=== PATIENT | female | born 1980 | race Caucasian/White ===

== ENCOUNTER → 2019-07-07 | Outpatient (CLI) | payer BC, SELFPAY ==
[2017-10-03 15:30] VITALS: BMI 24.7
== END | disposition home or self-care (01) ==
LOC: BFHLAB 14:02
PROVIDERS: PCP Family Medicine; Visit Provider Family Medicine
DX: N30.00 Acute cystitis without hematuria (principal)
CPT/HCPCS: 87086

== ENCOUNTER 2019-07-09 16:11 | Emergency (ER) | payer BC, SELFPAY ==
[2019-07-09 16:12] VITALS: BP 137/103; PULSE 73; RESP 20; TEMP 36.4; O2SAT 97; BMI 29.7
[2019-07-09 16:31] VITALS: TEMP 36.4
--- NOTE | 2019-07-09 16:31 | ED.DCSUM_ITS ---
- ER Visit Summary Date of Service: 07/09/19 Chief Complaint: Dysuria History of Present Illness: The patient is a 38 F no significant past medical or surgical history. On Saturday she started 7 symptoms of dysuria urgency and frequency. Seen by her primary care physician thought to have a UTI. Initially started on a cephalosporin and within 24 hours she was having no relief they changed to ciprofloxacin and again no relief. According to her primary care physician reviewed her urine culture and it was negative. Even though the initial UA dip seemed to be positive. Since she is not getting better they sent her in for further evaluation. She denies any vaginal discharge but is actively on her menstrual period at this time. She denies any fever chills or similar symptoms in the past. Physical Examination: Middle-aged female no acute distress vital signs are stable afebrile. H EENT exam unremarkable neck nontender. Lungs clear to auscultation bilaterally. Heart regular rhythm no murmur. Abdomen soft nontender normal bowel sounds no peritoneal signs. Extremities moves all 4. Nontender, no edema no cords. Back nontender. Neurologically she is awake and alert. No exam done female nurse present in the room. External exam unremarkable. No lesions. No discharge or blood. Pelvic exam just to the left at her urethra about 3:00 there is mild redness and irritation of the skin. There is no herpetic lesions. There is no condyloma that I can see at this time. The very small area. There is no blood or discharge. On speculum exam there is no abnormality. The cervix appears normal again with no blood or discharge. Test Results: Urinalysis no acute abnormality. No infection. Urine negative. Emergency Department Course and Treatment: Female with dysuria but reportedly a negative urine culture. Treatment Plan: CLINICAL TRIAL DATA MANAGER if not improving. Disposition: Discharge Impression: Acute dysuria secondary to urethral irritation This note was generated with NetMovie dictation software. It may contain incorrect words, spelling, and punctuation that were not noted in review of the chart prior to signing ED Disposition - Plan for ED Patient: Referrals: Guillaume Jauregui DO [Primary Care Provider] -
[2019-07-09 16:55] LABS: Bacteria 0 SEEN /hpf (None Seen); Mucous, Urine 0 SEEN /hpf (<or=2+); White Blood Cells 0 SEEN /hpf (0-5)
[2019-07-09 16:58] LABS: Color, Urine Amber (Yellow); Glucose, Dipstick Normal (Normal); Ketone-Dipstick Negative (Negative); Leukocyte Esterase-Dipstick 25 /ul (Negative); Nitrite-Dipstick Positive (Negative); Occult Blood-Urine 150 /ul (Negative); Protein-Dipstick Negative (Negative); Urine Clarity Clear (Clear); Urine Urobilinogen 8 mg/dl (Normal)
[2019-07-09 17:00] LABS: Internal QC Validated? YES +Cl - CLEAR BKGD; Pregnancy, Urine Negative Negative
[2019-07-09 17:05] LABS: Urine Bilirubin Dipstick 3 mg/dL (Negative)
[2019-07-09 17:18] LABS: Red Blood Cells-Urine 5-10 SEEN /hpf (0-5); Squamous Epithelial Cells - UA 0-5 SEEN /hpf (5-10)
--- NOTE | 2019-07-09 18:00 | DCINST.ED_ITS ---
ED Disposition - Plan for ED Patient: Disposition: Home or Assisted Living Instructions: Urethritis in Women Referrals: Senait Geiger MD [STAFF PHYSICIAN] - 3-5 Days if not improving Additional Instructions: This appears to be irritation of the vaginal skin to the left at about 3:00 of the urethra. Currently there is no signs of infection or bleeding. Follow-up with your HIV PREVENTION SPECIALIST if not improving.
[2019-07-09 18:08] VITALS: PULSE 74; RESP 17; TEMP 36.8; O2SAT 95
== END 2019-07-09 18:10 | disposition home or self-care (01) ==
PROVIDERS: Emergency Provider Emergency Medicine; PCP Family Medicine
DX: R30.0 Dysuria (principal); L53.9 Erythematous condition, unspecified
CPT/HCPCS: 81001; 81025; 99282

== ENCOUNTER 2019-07-10 04:18 | Emergency (ER) | payer BC, SELFPAY ==
[2019-07-09 16:12] VITALS: BMI 29.7
[2019-07-10 04:19] VITALS: BP 124/83; PULSE 70; RESP 16; TEMP 36.6; O2SAT 98; BMI 29.5
--- NOTE | 2019-07-10 04:21 | CT_ITS ---
STUDY: CT ABDOMEN AND PELVIS WITHOUT CONTRAST REASON FOR EXAM: Female, 38 years old. RIGHT FLANK PAIN RADIATION DOSAGE (If Supplied By Facility): CTDIvol = ( 7.88 ) mGy, DLP = ( 387.72 ) mGycm TECHNIQUE: Transaxial images were obtained from the dome of the diaphragm to the symphysis pubis without oral contrast, and without intravenous contrast. Sagittal and coronal images were reconstructed. Individualized dose optimization techniques were used for this CT. COMPARISON: None. FINDINGS: The visualized lung bases are unremarkable. The visualized portions of the heart are within normal limits. Normal liver. Normal gallbladder and extrahepatic biliary system. Normal spleen. Normal pancreas. Normal bilateral adrenal glands. There is moderate right-sided hydronephrosis and hydroureter due to presence of 5 mm stone in the distal end of the right ureter at ureterovesical junction.. Normal left kidney. Normal visualized stomach. Normal small intestine. Normal colon. The appendix is visualized and appears normal. Normal abdominal aorta. Normal inferior vena cava. Normal retroperitoneum. Normal urinary bladder. Normal abdominal wall. Normal osseous structures. CT/Abdomen/Pelvis without Cont IMPRESSION: There is moderate right-sided hydronephrosis and hydroureter due to presence of 5 mm stone in the distal end of the right ureter at ureterovesical junction.. Electronically Signed: Giulia Sarah, at 6:22 EST Tel , Service support ,
--- NOTE | 2019-07-10 04:22 | ED.VIS.GEN ---
History of Present Illness Chief Complaint: Flank Pain Informant: Patient Onset: Today Context: Sudden Onset Timing: Continuous Current Severity: Moderate Maximum Severity: Moderate Narrative: The patient presents to the emergency department with rather sudden onset right-sided flank pain. She was seen here yesterday for dysuria. She had already been on Cipro. Her urine was positive for nitrates and blood. She states she did not have significant pain at that time. Her pain acutely worsened about 3 this morning. She was nauseated with one episode of vomiting. She states she is never had pain like this before. She is otherwise been in her normal state of health. She denies any other new medications. She is not had fever chills. Prior similar symptoms: Yes Recent Illness/Hospitalization: No Past Medical History - Allergies and Home Meds Allergies/Adverse Reactions: Allergies No Known Allergies Allergy (Verified 07/10/19 04:23) Primary Care Physician: Binh Smith MD [STAFF PHYSICIAN] - Prior records reviewed: Yes Past Medical History: None Surgical History: noncontributory Smoking Status: Never smoker Review of Systems General: Denies: Chills, Fever, Sweats Eyes: Denies: Visual changes - bilaterally, Diplopia ENT: Denies: Rhinorrhea, Sore throat Cardiovascular: Denies: Chest pain, Palpitations Respiratory: Denies: Dyspnea, Cough, Dyspnea on exertion Gastrointestinal: Reports: Nausea, Vomiting. Denies: Abdominal pain, Diarrhea, Melena, Hematochezia Genitourinary: Reports: Dysuria. Denies: Hematuria, Frequency Musculoskeletal: Reports: Back pain. Denies: Extremity Pain Skin: Denies: Rash, Wounds Neurological: Denies: Headache, Weakness, Numbness Physical Exam Vital Signs/Narrative: Vital Signs Temp Pulse Resp BP Pulse Ox 07/10/19 04:19 97.8 F 70 16 124/83 H 98 Inital Vital Signs reviewed: Yes General: Well nourished, Well developed, No Acute Distress Head: Normocephalic, Atraumatic Eyes: Perrl, EOMI ENT: Moist mucous membranes, No rhinorrhea Neck: Supple, Nontender Cardiovascular: Regular rate, Regular rhythm, No murmurs Respiratory: No distress, CTA bilaterally, Chest nontender Abdomen: Soft, Nontender, Nondistended, Normal bowel sounds, No masses Back: Normal Inspection, CVA tenderness Extremities: Nontender, No edema Skin: Normal color, No rash Neurological: Alert, Oriented x3, Cranial nerves II-XII grossly intact, Normal Strength, Normal Sensation Psychological: Normal affect, Normal Mood Diagnostic/Tx/Re-eval Abnormal Lab Results 07/10/19 04:40 WBC 5.2 RBC 4.61 Hgb 12.8 Hct 39.9 MCV 86.6 MCH 27.8 MCHC 32.1 RDW Std Deviation 39.5 RDW Coeff of Zaria 12.3 Plt Count 310 MPV 8.7 Immature Gran % (Auto) 0.200 Neut % (Auto) 56.2 Lymph % (Auto) 33.2 [place] % (Auto) 8.3 Eos % (Auto) 1.7 Baso % (Auto) 0.4 Absolute Neuts (auto) 2.9 Absolute Lymphs (auto) 1.71 Nucleated RBC % 0 - Medical Decision Making The patient presents with rather sudden onset right-sided flank pain. She has had dysuria and urinary frequency for the past few days. I did review her culture which was negative. Her urine from yesterday showed some blood. She has signs and symptoms consistent with kidney stone. IV was established. The patient was given analgesics, anti-inflammatories, and antiemetics. She had market improvement of her pain and was resting much more comfortably. Patient underwent CT imaging. This does demonstrate a 5 mm stone that appears to be already in the bladder. The patient is now pain-free. At this point, I do feel that she is safe for outpatient therapy. She will be treated with antiemetics and analgesics. She will be given outpatient urology follow-up as needed. She is comfortable with this plan of care. Impression 1. Right-sided kidney stone ED Disposition - Plan for ED Patient: Instructions: KIDNEY STONE w/ Colic Prescriptions: Hydrocodone Bitart/Apap 5-325 [[place] 5MG-325MG] 1 tab PO Q6H PRN PRN 3 Days #10 tab PRN Reason: Pain Prescription Printed Ondansetron [Zofran Odt] 4 mg PO Q8H PRN PRN #10 tab PRN Reason: Nausea Prescription Printed Referrals: Binh Smith MD [STAFF PHYSICIAN] -
[2019-07-10] MEDS: Ketorolac 30 MG/ML Syringe IV (04:26)
[2019-07-10] MEDS: Morphine 4 MG/ML Syringe IV (04:26)
[2019-07-10] MEDS: Ondansetron 4 MG/2 ML Vial IV (04:26)
[2019-07-10] MEDS: 0.9% Normal Saline 1,000 ML 250 ML IV (04:45)
[2019-07-10 04:49] LABS: Absolute Lymphocyte Count 1.71 X10^3/uL (0.83-4.51); Absolute Neutrophil Count 2.9 X10^3/uL (2.0-7.7); Basophil# 0.02 X10^3/uL; Basophil% 0.4 % (0-1); Eosinophil# 0.09 X10^3/uL; Eosinophils% 1.7 % (0-5); Hematocrit 39.9 % (37-47); Hemoglobin 12.8 g/dL (12.0-15.0); Lymphocyte # 1.71 X10^3/ul (4.0); Lymphocyte % 33.2 % (19-41); Mean Corp Hgb Conc 32.1 g/dL (32-36); Mean Corpuscular Hgb 27.8 pg (27.0-32.0); Mean Corpuscular Volume 86.6 fL (81-99); Mean Platelet Vol. 8.7 fl (6.2-12.0); Monocyte# 0.43 X10^3/uL; Monocyte% 8.3 % (0-10); NRBC Flagged by Analyzer 0 % (0-5); Neutrophil # 2.89 X10^3/uL (2.7-7.7); Neutrophil % 56.2 % (47-70); Platelet Count 310 K/mm3 (150-450); RBC Distribution Width CV 12.3 % (11.6-14.6); RBC Distribution Width SD 39.5 fl (35.1-43.9); Red Blood Count 4.61 M/mm3 (4.2-5.4); White Blood Count 5.2 K/mm3 (4.4-11.0)
[2019-07-10 05:02] LABS: Anion Gap 2 (5-15); BUN 16 mg/dL (7-18); BUN/Creat Ratio 17.8 RATIO (10-20); Calcium,Total 8.1 mg/dL (8.5-10.1); Chloride 112 mmol/L (98-107); EST Glomerular Filtration Rate 74 mL/min (>60); Est Glom Filt Rate - Afr Amer 90 mL/min (>60); Estimated Creatinine Clearance 67.03 ml/min; Glucose 129 mg/dL (74-106); Potassium 3.7 mmol/L (3.5-5.1); Sodium Level 142 mmol/L (136-145)
[2019-07-10 06:29] VITALS: PULSE 80; RESP 14; O2SAT 98
== END 2019-07-10 06:30 | disposition home or self-care (01) ==
PROVIDERS: Emergency Provider Emergency Medicine; PCP Family Medicine
DX: N20.0 Calculus of kidney (principal)
CPT/HCPCS: 74176; 80048; 85025; 96361; 96374; 96375; 99284; J7030; A4216; J2405

== ENCOUNTER 2019-07-10 08:14 | Emergency (ER) | payer BC, SELFPAY ==
[2019-07-10 04:19] VITALS: BMI 29.5
[2019-07-10 08:15] VITALS: BP 91/43; PULSE 73; RESP 20; TEMP 36.4; O2SAT 98; BMI 26.6
--- NOTE | 2019-07-10 08:29 | ED.DCSUM_ITS ---
- ER Visit Summary Date of Service: 07/10/19 Chief Complaint: Right flank pain History of Present Illness: The patient is a 38 F who presents with right flank pain that began this morning. Patient states the pain began suddenly. Patient states the pain woke her up out of her sleep. Patient was seen here earlier this morning and diagnosed with a kidney stone. Patient was feeling better after analgesics here in the emergency department but her pain came back at home. Patient states the pain is localized to the right lower flank area. Patient denies any dysuria or hematuria. Patient denies any urinary frequency. Review of her records shows a 5 mm stone at the right ureterovesicular junction. Physical Examination: Vital signs are stable except for slightly low blood pressure of 91/43. Patient is afebrile. Patient is in no acute distress. Oral mucosa is pink and moist. Neck is supple. Trachea is midline. There is no JVD. Heart was regular rate and rhythm. Lungs are clear and equal bilateral. Abdomen is soft. Bowel sounds are normal. There is some mild right lower abdominal and lower flank tenderness. There is no rebound or guarding noted. Cranial nerves II through XII are intact. There are no focal motor or sensory deficits noted. Test Results: Urinalysis was obtained. There is no evidence of urinary tract infection. Emergency Department Course and Treatment: Patient was given IV fluids, morphine, Zofran, and Toradol. Patient was still having pain. Patient was given repeat doses of Dilaudid. Case was discussed with Dr. Smith. He states the stone is almost into the bladder and the patient should push fluids. He does not want to do surgery for a stone that is almost into the bladder. Patient understands and is agreeable with the plan. Patient was instructed to follow-up in 3 to 5 days. Patient and family understand. All questions were answered. Disposition: Discharge home Impression: Right ureteral calculus This note was generated with [employer] dictation software. It may contain incorrect words, spelling, and punctuation that were not noted in review of the chart prior to signing ED Disposition - Plan for ED Patient: Disposition: Home or Assisted Living Diagnosis: Right ureteral calculus Instructions: KIDNEY STONE w/ Colic Referrals: Guillaume Jauregui DO [Primary Care Provider] - 3-5 Days Binh Smith MD [STAFF PHYSICIAN] - 3-5 Days
[2019-07-10] MEDS: Morphine 4 MG/ML Syringe IV (08:33)
[2019-07-10] MEDS: Ketorolac 30 MG/ML Syringe IV (08:33)
[2019-07-10] MEDS: Ondansetron 4 MG/2 ML Vial IV (08:33)
[2019-07-10] MEDS: 0.9% Normal Saline 1,000 ML 250 ML IV (08:34)
[2019-07-10 08:57] VITALS: BP 117/80
[2019-07-10] MEDS: HYDROmorphone 0.5 MG/0.5 ML SYRINGE IV ×3 (08:59→12:07)
[2019-07-10 09:22] LABS: Basophil# 0.02 X10^3/uL; Basophil% 0.3 % (0-1); Eosinophil# 0.01 X10^3/uL; Eosinophils% 0.1 % (0-5); Hematocrit 36.2 % (37-47); Hemoglobin 11.6 g/dL (12.0-15.0); Lymphocyte % 10.1 % (19-41); Mean Corpuscular Hgb 27.8 pg (27.0-32.0); Mean Corpuscular Volume 86.8 fL (81-99); Mean Platelet Vol. 9.1 fl (6.2-12.0); Monocyte# 0.18 X10^3/uL; Monocyte% 2.6 % (0-10); NRBC Flagged by Analyzer 0 % (0-5); Neutrophil # 5.98 X10^3/uL (2.7-7.7); Neutrophil % 86.6 % (47-70); Platelet Count 275 K/mm3 (150-450); RBC Distribution Width CV 12.5 % (11.6-14.6); RBC Distribution Width SD 39.8 fl (35.1-43.9); Red Blood Count 4.17 M/mm3 (4.2-5.4); White Blood Count 6.9 K/mm3 (4.4-11.0)
[2019-07-10 09:34] LABS: Anion Gap 5 (5-15); BUN 17 mg/dL (7-18); BUN/Creat Ratio 19.5 RATIO (10-20); Calcium,Total 7.9 mg/dL (8.5-10.1); Chloride 116 mmol/L (98-107); Creatinine, Serum 0.87 mg/dL (0.55-1.02); EST Glomerular Filtration Rate 77 mL/min (>60); Est Glom Filt Rate - Afr Amer 93 mL/min (>60); Estimated Creatinine Clearance 75.71 ml/min; Glucose 136 mg/dL (74-106); Sodium Level 145 mmol/L (136-145)
[2019-07-10 10:07] VITALS: BP 132/98
[2019-07-10 10:56] LABS: Mucous, Urine 0 SEEN /hpf (<or=2+)
[2019-07-10 11:04] LABS: Color, Urine Yellow (Yellow); Glucose, Dipstick Normal (Normal); Ketone-Dipstick 5 mg/dl (Negative); Leukocyte Esterase-Dipstick 25 /ul (Negative); Nitrite-Dipstick Positive (Negative); Occult Blood-Urine 150 /ul (Negative); Protein-Dipstick 15 mg/dl (Negative); Specific Gravity, Urine 1.025 (1.002-1.030); Urine Bilirubin Dipstick Negative (Negative); Urine Clarity Clear (Clear); Urine Urobilinogen Normal (Normal)
[2019-07-10 11:10] LABS: Bacteria 1+ /hpf (None Seen); Red Blood Cells-Urine 5-10 SEEN /hpf (0-5); Squamous Epithelial Cells - UA 0-5 SEEN /hpf (5-10); White Blood Cells 0-5 SEEN /hpf (0-5)
[2019-07-10 11:44] VITALS: BP 119/80; PULSE 50; RESP 16; O2SAT 95
[2019-07-10 12:38] VITALS: BP 100/64; PULSE 54; RESP 18; O2SAT 96
== END 2019-07-10 12:39 | disposition home or self-care (01) ==
PROVIDERS: Emergency Provider Emergency Medicine; PCP Family Medicine
DX: N20.1 Calculus of ureter (principal)
CPT/HCPCS: 74176; 80048; 81001; 85025; 96361; 96374; 96375; 96376; 99283; 99284; J7030; A4216; J2405

== ENCOUNTER → 2019-12-14 | Outpatient (CLI) | payer BC, SELFPAY ==
[2019-12-14 12:07] LABS: Absolute Lymphocyte Count 1.94 X10^3/uL (0.83-4.51); Absolute Neutrophil Count 3.1 X10^3/uL (2.0-7.7); Basophil# 0.04 X10^3/uL; Basophil% 0.7 % (0-1); Eosinophil# 0.08 X10^3/uL; Eosinophils% 1.4 % (0-5); Hematocrit 44.2 % (37-47); Hemoglobin 14.2 g/dL (12.0-15.0); Lymphocyte # 1.94 X10^3/ul (4.0); Lymphocyte % 34.9 % (19-41); Mean Corp Hgb Conc 32.1 g/dL (32-36); Mean Corpuscular Hgb 27.7 pg (27.0-32.0); Mean Corpuscular Volume 86.2 fL (81-99); Mean Platelet Vol. 9.9 fl (6.2-12.0); Monocyte% 7.2 % (0-10); NRBC Flagged by Analyzer 0 % (0-5); Neutrophil # 3.08 X10^3/uL (2.7-7.7); Neutrophil % 55.4 % (47-70); Platelet Count 358 K/mm3 (150-450); RBC Distribution Width CV 12.8 % (11.6-14.6); RBC Distribution Width SD 39.6 fl (35.1-43.9); Red Blood Count 5.13 M/mm3 (4.2-5.4); White Blood Count 5.6 K/mm3 (4.4-11.0)
[2019-12-14 12:23] LABS: Hemoglobin A1c 5.4 % (3.8-5.6)
[2019-12-14 12:28] LABS: AST(SGOT) 15 U/L (15-37); Alanine Aminotransfer ALT/SGPT 29 U/L (13-56); Albumin, Serum 3.7 g/dL (3.2-5.0); Alkaline Phosphatase 62 U/L (45-117); Anion Gap 6 (5-15); BUN 17 mg/dL (7-18); BUN/Creat Ratio 18.6 RATIO (10-20); Calcium,Total 8.4 mg/dL (8.5-10.1); Chloride 108 mmol/L (98-107); Cholesterol 172 mg/dL (200); Creatinine, Serum 0.91 mg/dL (0.55-1.02); EST Glomerular Filtration Rate 73 mL/min (>60); Est Glom Filt Rate - Afr Amer 88 mL/min (>60); Ferritin 22 ng/mL (8-252); Globulin 3.7 g/dL (2.2-4.2); Glucose 86 mg/dL (74-106); High Density Lipoprotein 46 mg/dL; Iron 54 ug/dL (50-170); Potassium 4.1 mmol/L (3.5-5.1); Protein, Total 7.4 g/dL (6.4-8.2); Sodium Level 139 mmol/L (136-145); Thyroid Stim Hormone (TSH) 2.58 uIU/mL (0.358-3.74); Triglycerides 62 mg/dL; Very Low Density Lipoprotein 12 mg/dL (5-40)
[2019-12-14 13:00] LABS: HIV - WCH Non-Reactive (Nonreactive); Hepatitis C Antibody Non-Reactive (Nonreactive); Vitamin B12 453 pg/mL (211-911)
== END | disposition home or self-care (01) ==
PROVIDERS: PCP Family Medicine; Visit Provider Family Medicine
DX: Z00.00 Encounter for general adult medical examination without abnormal findings (principal); D64.9 Anemia, unspecified; R73.9 Hyperglycemia, unspecified; R53.83 Other fatigue; Z20.9 Contact with and (suspected) exposure to unspecified communicable disease
CPT/HCPCS: 36415; 80053; 80061; 82607; 82728; 83036; 83540; 84443; 85025; 86703; 86803

== ENCOUNTER 2020-06-28 14:43 | Emergency (ER) | payer BC, SELFPAY ==
[2020-06-28 14:44] VITALS: BP 147/91; PULSE 63; RESP 16; TEMP 36.7; O2SAT 98; BMI 28.3
[2020-06-28] MEDS: Ondansetron ODT 4 MG Tablet PO (15:10)
--- NOTE | 2020-06-28 15:10 | ED.DCSUM_ITS ---
History of Present Illness Chief Complaint: General Illness Informant: Patient Narrative: This is a 39-year-old female who states that on Saturday night she began to have nausea. On Saturday she developed vomiting and diarrhea. No further vomiting or diarrhea but she notes continued nausea. She states that she is having some urinary frequency and now the sides of her abdomen are hurting. She states she is very concerned that her kidneys are involved. She denies any dysuria. No fevers. No cough shortness of breath or sore throat. She denies any rashes. Past Medical History - Allergies and Home Meds Allergies/Adverse Reactions: Allergies No Known Allergies Allergy (Verified 06/28/20 14:43) Primary Care Physician: Guillaume Jauregui DO [Primary Care Provider] - Past Medical History: None Surgical History: noncontributory Smoking Status: Never smoker Drugs: None Review of Systems General: Denies: Chills, Fever, Sweats Eyes: Denies: Visual changes - bilaterally, Diplopia ENT: Denies: Rhinorrhea, Sore throat Cardiovascular: Denies: Chest pain, Palpitations Respiratory: Denies: Dyspnea, Cough, Dyspnea on exertion Gastrointestinal: Reports: Abdominal pain, Nausea, Vomiting, Diarrhea. Denies: Melena, Hematochezia Genitourinary: Denies: Dysuria, Hematuria, Frequency Musculoskeletal: Denies: Back pain, Extremity Pain Skin: Denies: Rash, Wounds Neurological: Denies: Headache, Weakness, Numbness Physical Exam Vital Signs/Narrative: Vital Signs Temp Pulse Resp BP Pulse Ox 06/28/20 14:44 98.1 F 63 16 147/91 H 98 Inital Vital Signs reviewed: Yes General: Well nourished, Well developed, No Acute Distress Head: Normocephalic, Atraumatic Eyes: Perrl, EOMI ENT: Moist mucous membranes, No rhinorrhea Neck: Supple, Nontender Cardiovascular: Regular rate, Regular rhythm, No murmurs Respiratory: No distress, CTA bilaterally, Chest nontender Abdomen: Soft, Nontender, Nondistended, Normal bowel sounds Back: Nontender, Normal Inspection Extremities: Nontender, No edema Skin: Normal color, No rash Neurological: Alert, Oriented x3, Cranial nerves II-XII grossly intact, Normal Strength, Normal Sensation Psychological: Normal affect, Normal Mood Diagnostic/Tx/Re-eval Laboratory Last Values WBC 8.0 K/mm3 (4.4-11.0) 06/28/20 15:15 RBC 5.22 M/mm3 (4.2-5.4) 06/28/20 15:15 Hgb 14.3 g/dL (12.0-15.0) 06/28/20 15:15 Hct 44.5 % (37-47) 06/28/20 15:15 MCV 85.2 fL (81-99) 06/28/20 15:15 MCH 27.4 pg (27.0-32.0) 06/28/20 15:15 MCHC 32.1 g/dL (32-36) 06/28/20 15:15 RDW Std Deviation 38.3 fl (35.1-43.9) 06/28/20 15:15 RDW Coeff of Zaria 12.3 % (11.6-14.6) 06/28/20 15:15 Plt Count 394 K/mm3 (150-450) 06/28/20 15:15 MPV 8.8 fl (6.2-12.0) 06/28/20 15:15 Immature Gran % (Auto) 0.300 % (0.0-0.9) 06/28/20 15:15 Neut % (Auto) 67.2 % (47-70) 06/28/20 15:15 Lymph % (Auto) 23.3 % (19-41) 06/28/20 15:15 [place] % (Auto) 7.8 % (0-10) 06/28/20 15:15 Eos % (Auto) 0.9 % (0-5) 06/28/20 15:15 Baso % (Auto) 0.5 % (0-1) 06/28/20 15:15 Absolute Neuts (auto) 5.4 X10^3/uL (2.0-7.7) 06/28/20 15:15 Absolute Lymphs (auto) 1.85 X10^3/uL (0.83-4.51) 06/28/20 15:15 Nucleated RBC % 0 % (0-5) 06/28/20 15:15 Sodium 139 mmol/L (136-145) 06/28/20 15:15 Potassium 4.0 mmol/L (3.5-5.1) 06/28/20 15:15 Chloride 107 mmol/L (98-107) 06/28/20 15:15 Carbon Dioxide 27.0 mmol/L (21.0-32.0) 06/28/20 15:15 Anion Gap 5 (5-15) 06/28/20 15:15 BUN 14 mg/dL (7-18) 06/28/20 15:15 Creatinine 0.80 mg/dL (0.55-1.02) 06/28/20 15:15 Estim Creat Clear Calc 74.67 ml/min 06/28/20 15:15 Est GFR (MDRD) Af Amer 103 mL/min (>60) 06/28/20 15:15 Est GFR (MDRD) Non-Af 85 mL/min (>60) 06/28/20 15:15 BUN/Creatinine Ratio 17.5 RATIO (10-20) 06/28/20 15:15 Glucose 98 mg/dL (74-106) 06/28/20 15:15 Calcium 8.8 mg/dL (8.5-10.1) 06/28/20 15:15 Total Bilirubin 0.30 mg/dL (0.20-1.00) 06/28/20 15:15 AST 13 U/L (15-37) L 06/28/20 15:15 ALT 27 U/L (13-56) 06/28/20 15:15 Alkaline Phosphatase 64 U/L (45-117) 06/28/20 15:15 Total Protein 7.3 g/dL (6.4-8.2) 06/28/20 15:15 Albumin 4.0 g/dL (3.2-5.0) 06/28/20 15:15 Globulin 3.3 g/dL (2.2-4.2) 06/28/20 15:15 Albumin/Globulin Ratio 1.2 RATIO (0.9-2.4) 06/28/20 15:15 Lipase 182 U/L (73-393) 06/28/20 15:15 Urine Color Yellow (Yellow) 06/28/20 15:10 Urine Clarity Clear (Clear) 06/28/20 15:10 Urine pH 6.5 (5.0 - 8.0) 06/28/20 15:10 Ur Specific [place] 1.010 (1.002-1.030) 06/28/20 15:10 Urine Protein Negative mg/dl (Negative) 06/28/20 15:10 Urine Glucose (UA) Normal mg/dl (Normal) 06/28/20 15:10 Urine Ketones Negative mg/dl (Negative) 06/28/20 15:10 Urine Occult Blood Negative /ul (Negative) 06/28/20 15:10 Urine Nitrite Negative (Negative) 06/28/20 15:10 Urine Bilirubin Negative mg/dL (Negative) 06/28/20 15:10 Urine Urobilinogen Normal mg/dl (Normal) 06/28/20 15:10 Ur Leukocyte Esterase Negative /ul (Negative) 06/28/20 15:10 Urine RBC 0 SEEN /hpf (0-5) 06/28/20 15:10 Urine WBC 0 SEEN /hpf (0-5) 06/28/20 15:10 Ur Squamous Epith Cells 0-5 SEEN /hpf (5-10) 06/28/20 15:10 Urine Bacteria 0 SEEN /hpf (None Seen) 06/28/20 15:10 Urine Mucus 0 SEEN /hpf (<or=2+) 06/28/20 15:10 - Medical Decision Making IV was established and the patient received some IV fluids and Zofran. Basic blood work including urinalysis was obtained. Basic blood work was normal urinalysis was normal. At this point patient be discharged home with Zofran. Return if worsening or concerns ED Disposition - Plan for ED Patient: Disposition: Home or Assisted Living Diagnosis: Gastroenteritis, Nausea Instructions: ED Gastroenteritis, Viral (Adult) Prescriptions: Ondansetron [Zofran Odt] 4 mg PO Q6H PRN PRN #10 tab PRN Reason: Nausea Prescription Printed Referrals: Guillaume Jauregui DO [Primary Care Provider] - As Needed
[2020-06-28 15:24] LABS: Bacteria 0 SEEN /hpf (None Seen); Mucous, Urine 0 SEEN /hpf (<or=2+); Red Blood Cells-Urine 0 SEEN /hpf (0-5); White Blood Cells 0 SEEN /hpf (0-5)
[2020-06-28 15:28] LABS: Absolute Lymphocyte Count 1.85 X10^3/uL (0.83-4.51); Absolute Neutrophil Count 5.4 X10^3/uL (2.0-7.7); Basophil# 0.04 X10^3/uL; Basophil% 0.5 % (0-1); Eosinophil# 0.07 X10^3/uL; Eosinophils% 0.9 % (0-5); Hematocrit 44.5 % (37-47); Hemoglobin 14.3 g/dL (12.0-15.0); Lymphocyte # 1.85 X10^3/ul (4.0); Lymphocyte % 23.3 % (19-41); Mean Corp Hgb Conc 32.1 g/dL (32-36); Mean Corpuscular Hgb 27.4 pg (27.0-32.0); Mean Corpuscular Volume 85.2 fL (81-99); Mean Platelet Vol. 8.8 fl (6.2-12.0); Monocyte# 0.62 X10^3/uL; Monocyte% 7.8 % (0-10); NRBC Flagged by Analyzer 0 % (0-5); Neutrophil # 5.35 X10^3/uL (2.7-7.7); Neutrophil % 67.2 % (47-70); Platelet Count 394 K/mm3 (150-450); RBC Distribution Width CV 12.3 % (11.6-14.6); RBC Distribution Width SD 38.3 fl (35.1-43.9); Red Blood Count 5.22 M/mm3 (4.2-5.4)
[2020-06-28 15:35] LABS: Color, Urine Yellow (Yellow); Glucose, Dipstick Normal (Normal); Ketone-Dipstick Negative (Negative); Leukocyte Esterase-Dipstick Negative /ul (Negative); Nitrite-Dipstick Negative (Negative); Occult Blood-Urine Negative /ul (Negative); Protein-Dipstick Negative (Negative); Urine Bilirubin Dipstick Negative (Negative); Urine Clarity Clear (Clear); Urine Urobilinogen Normal (Normal); Urine pH 6.5 (5.0 - 8.0)
[2020-06-28 15:46] LABS: ALB/GLOB Ratio 1.2 RATIO (0.9-2.4); AST(SGOT) 13 U/L (15-37); Alanine Aminotransfer ALT/SGPT 27 U/L (13-56); Alkaline Phosphatase 64 U/L (45-117); Anion Gap 5 (5-15); BUN 14 mg/dL (7-18); BUN/Creat Ratio 17.5 RATIO (10-20); Calcium,Total 8.8 mg/dL (8.5-10.1); Chloride 107 mmol/L (98-107); EST Glomerular Filtration Rate 85 mL/min (>60); Est Glom Filt Rate - Afr Amer 103 mL/min (>60); Estimated Creatinine Clearance 74.67 ml/min; Globulin 3.3 g/dL (2.2-4.2); Glucose 98 mg/dL (74-106); Lipase 182 U/L (73-393); Protein, Total 7.3 g/dL (6.4-8.2); Sodium Level 139 mmol/L (136-145)
[2020-06-28 15:48] LABS: Squamous Epithelial Cells - UA 0-5 SEEN /hpf (5-10)
== END 2020-06-28 16:35 | disposition home or self-care (01) ==
PROVIDERS: Emergency Provider Emergency Medicine; PCP Family Medicine
DX: K52.9 Noninfective gastroenteritis and colitis, unspecified (principal)
CPT/HCPCS: 80053; 81001; 83690; 85025; 99285; J7030

== ENCOUNTER 2021-03-22 05:56 | Day surgery (SDC) | payer BC, SELFPAY ==
[2021-03-22] VITALS (7 sets, daily range): BP systolic 93–112; BP diastolic 60–90; PULSE 70–92; RESP 16–106; TEMP 36.1–36.9; O2SAT 98–100; BMI 28.0
[2021-03-22 06:58] LABS: Internal QC Validated? YES +Cl - CLEAR BKGD; Pregnancy, Serum, hCG Quali. NEGATIVE Negative
[2021-03-22] MEDS: Lactated Ringers 1,000 ML 100 ML IV (06:59)
--- NOTE | 2021-03-22 07:22 | PCM.HP.BLA ---
History and Physical Date of Admission: 03/22/21 The patientVisit Reasons: CSCOPE, FAMILY HISTORY, BLOOD IN STOOL Chief Complaint: rectal bleeding Rooming House Inspector Required: No Is patient in pain?: No Allergies No Known Allergies Allergy (Verified 02/17/21 15:17) Medications Diltiazem 2% / Lidocaine 5% ointment (compound) #1 ea 02/17/21 [Rx Confirmed 02/17/21] Hydrocortisone 2.5%/lidocaine 5% suppository (cmpd) #1 ea 02/17/21 [Rx Confirmed 02/17/21] semaglutide 1 mg/dose (2 mg/1.5 mL) subcutaneous pen injector 1 mg SUBCUT QWEEK 02/17/21 [History Confirmed 02/17/21] PFSH Medical History Rectal bleed Surgical History History of cosmetic surgery Hx of breast implants, bilateral S/P plastic surgery Family History Uncle Colon cancer Social History Smoking Status: Never smoker alcohol intake: never HPI HPI HPI: WILLAM GALLOWAY, is a 40 F who presents to the office today for with complaint of 8-month history of rectal bleeding. Recently the bleeding has become more frequent and more severe. Sometimes including today she has had clots per rectum. She denies any previous history of colonoscopy. She denies any particular anal pain. She has had change of stool caliber. No history of diverticular disease. She is concerned because she has a great grandmother who had colon cancer and a great uncle with colon cancer and that her mother had premalignant polyps. No fever chills no nausea vomiting no weight loss. No history of COVID-19. No history of DVT. ROS General General: No weight change, appetite, fatigue, colon cancer, breast cancer or weakness HEENT HEENT: No difficulty swallowing, eye injury, eye surgery, swollen glands or hoarseness Endo Endocrine: No thyroid disease, diabetes mellitus, thyroid cancer, Hair loss, heat intolerance or cold intolerance Skin Skin: No rash or changing moles Breast Breast: No left breast lump, right breast lump, nipple discharge, breast pain, abnormal mammogram, abnormal US or breast enlargement Musc Musculoskeletal: No back problems, arthritis, rheumatoid arthritis, gout or joint pain Cardio Cardiovascular: No murmur, pacemaker, heart disease, atrial fibrillation, high blood pressure, heart attack, heart stent, palpitations, shortness of breat with exertion or chest pain Psych Psychiatric: No depression, anxiety or hearing voices Resp Respiratory: No shortness of breath, No sleep apnea, No cough, No COPD, No asthma, No emphysema and No wheezing Gastro Gastrointestinal: No abdominal pain, No nausea or vomiting, No diarrhea, Yes constipation, Yes blood in stool, No acid reflux, Yes hemorrhoids, No ulcers, No gallbladder problem and Yes black,tarry stools [place] Hematologic: No blood thinners, No blood disorders, No bleeding, No anemia and No blood clots Neuro Neurologic: No system reviewed and no additional complaints, except as documented, No as per HPI, No abnormal gait, No abnormal hearing, No abnormal movements, No abnormal speech, No behavioral changes, No burning sensations, No confusion, No convulsions, No disequilibrium, No dizziness, No localized weakness, No frequent falls, No headache(s), No lack of coordination, No loss of vision, No memory loss, No numbness, No other visual disturbances, No radicular pain, No restless legs, No sensory deficit, No syncope, No tingling, No tremor(s), No weakness and No other Exam Const General: cooperative, healthy appearing, comfortable and no acute distress Nutritional Appearance: average body habitus [facility] Head: normal to inspection Eyes General: appearance normal, both eyes and all related structures Neck Neck: normal visual inspection Resp Effort & Inspection: normal respiratory effort Auscultation: clear to auscultation bilaterally Cardio Rate: regular rate Rhythm: regular rhythm GI Palpation: soft and no hepatosplenomegaly Auscultation: normal bowel sounds Other: Anal inspection demonstrates a posterior anal fissure with some bleeding. I did not attempt a digital exam. Skin General: no rashes or lesions noted Neuro General: patient alert and patient awake Extrem General: no calf tenderness Psych Appearance: grossly normal Assessment and Plan Assessment and Plan (1) Rectal bleed: Status: Acute (2) Anal fissure: Status: Acute (3) Internal hemorrhoids with complication: Status: Acute Plan Details Other Medications: New: Diltiazem 2% / Lidocaine 5% ointment (compound) apply to suppository and insert twice daily 1 ea 0RF Hydrocortisone 2.5%/lidocaine 5% suppository (cmpd) (hydrocortisone 2.5%/lidocaine 5% suppository (compound)) twice daily 1 ea 0RF Additional Comments: My current clinical suspicion is that the patient has a posterior anal fissure associated with internal hemorrhoids that is causing a significant amount of bleeding. I recommended we obtain a CBC today to assure that we do not have significant anemia. I propose for her a combined colonoscopy secondary to the change of bowel habits and family history. If no significant adverse finding is identified at that setting then I would propose a same setting examination under anesthesia posterior anal fissurectomy with internal hemorrhoidectomy if indicated. The patient is aware that a lateral internal sphincterotomy is typically recommended to assist with resolution however that this does come with the risk of incontinence and I would propose not performing that at this initial investigative sessile session. I have discussed with her technique benefit risk complications alternatives discussed with her that there are no guarantees of success or resolution. At this time we will also initiate treatment with Anusol suppositories and diltiazem cream. She has had an opportunity to ask and have questions answered. We will try to schedule and expedite her care next week. Appreciate the opportunity of assisting with her surgical care Copy: Dr. Guillaume Jauregui The patient notes 3 weeks worth of suppositories and diltiazem cream. She thinks her rectal bleeding ceased 1 week ago. She is not currently having any anal rectal pain. We have discussed proceeding with a colonoscopy. Very careful inspection for a anal rectal source of bleeding will be pursued. If indeed a treatable source like bleeding internal hemorrhoids or still active anal fissure is identified then definitive hemorrhoidectomy or fissurectomy will be pursued. If no active anorectal disease is identified then the procedure will be completed at a colonoscopy. Radames De Jesus M.D., F.A.C.S.
--- NOTE | 2021-03-22 07:25 | EX.PCM.DISCH ---
Discharge Instructions Follow Up Care Test Results: Please take a daily fiber supplement like Metamucil or Citrucel or FiberCon or Benefiber or generic. If surgical treatment of a fissure or hemorrhoid has been performed then I recommend using mineral oil 30 cc (1 ounce) in fluid or food daily for 5 to 7 days. Sitz baths in warm soapy water approximately 20 minutes a time can be used for comfort. After defecation please assure adequate cleansing with wipes or showering or tub bathing. Activity otherwise as tolerated without heavy lifting or straining No driving until off of narcotic pain pills and comfort improves. Please call [phone] to schedule an appointment for approximately 3 weeks Discharge Plan Admission Primary Reason for Your Visit: Rectal bleeding, anal fissure and hemorrhoids Attending Provider: Radames De Jesus Primary Care Provider: Guillaume Jauregui Discharge Orders/Prescriptions Prescriptions: New hydrocodone-acetaminophen 5-325 mg tablet 1 tab PO Q6H PRN (Reason: pain) 4 Days Qty: 15 RF: 0 metronidazole 250 mg tablet 250 mg PO TID Qty: 15 RF: 0 Continued Ozempic 1 mg/dose (2 mg/1.5 mL) pen injector 1 mg subcut WE RF: 0 (DME) Diltiazem 2% / Lidocaine 5% ointment (compound) Ointment See Rx Instructions .ROUTE .MEDSUPPLY Qty: 1 RF: 0 (DME) hydrocortisone 2.5%/lidocaine 5% suppository (compound) Suppository See Rx Instructions .ROUTE .MEDSUPPLY Qty: 1 RF: 0 Referrals / Follow Up: Guillaume Jauregui DO [Primary Care Provider] - Disposition Disposition (needs filled in before D/C Order can be placed): Home, Self Care
--- NOTE | 2021-03-22 07:30 | COLBX_PTH ---
PATIENT: WILLAM GALLOWAY LOC: [facility] – [place] U#:[id number] AGE/SX: 40/F ROOM: RE03/22/[address]: Dr. Radames De Jesus MD : 1980 BED: DIS: 03/22/2021 SPEC #: [id number] RECD: 03/22/21 08:25 STATUS: ESTEPHANIA REDavid #: [id number] JANE: 03/22/21 07:[address]: Radames De Jesus DEPT: SURGICAL PATHOLOGY RECD BY: Kaley Hannon ENTERED: 03/22/21 10:33 SP TYPE: COLON BX OTHR DR: Dr. Guillaume Jauregui DO Tissues: A - Sigmoid colon biopsy B - Sigmoid colon biopsy C - Rectum, NOS D - HEMORRHOIDS Procedures: Surgery Specimen Level III Surgery Specimen Level IV HEADER OPERATION: Colonoscopy (MAC) PRE-OP DIAGNOSIS: Rectal bleed, anal fissure, internal hemorrhoids TISSUE SUBMITTED: A - Proximal sigmoid polyp snare, B - Biopsy proximal sigmoid, C - Rectal polyp snare, D - Hemorrhoids MICROSCOPIC DIAGNOSIS A. Proximal sigmoid polyp, biopsy: Tubular adenoma. B. Proximal sigmoid, biopsy: Hyperplastic polyp. C. Rectal polyp, biopsy: Hyperplastic polyp. D. Hemorrhoids: Fragments of anorectal mucosa with dilated and congested blood vessels, consistent with hemorrhoid. JANETH:flores 03/24/2021 MICROSCOPIC DESCRIPTION Slides are reviewed. GROSS DESCRIPTION A - Received in fixative is one container labeled with the patient's name and designated proximal sigmoid polyp. The specimen consists of a ramos-pink polyp measuring 0.6 x 0.6 x 0.4 cm. The specimen is totally submitted in one cassette. B - Received in fixative is one container labeled with the patient's name and designated biopsy of proximal sigmoid. The specimen consists of two irregular fragments of light ramos soft tissue that in aggregate measure 0.4 x 0.2 x 0.1 cm. The specimen is totally submitted in one cassette. C - Received in fixative is one container labeled with the patient's name and designated rectal polyp. The specimen consists of one irregular fragment of light ramos soft tissue that measures 0.2 x 0.2 x 0.1 cm. The specimen is totally submitted in one cassette. / SJ:flores 03/23/2021 D - Received in fixative is one container labeled with the patient's name and designated hemorrhoids. The specimen consists of three variable sized pieces of congested, hemorrhagic mucosal tissue that in aggregate measure 3 x 1.5 x 0.5 cm. The specimen is totally submitted in one cassette. The largest piece is sectioned. The entire specimen is submitted in one cassette. / SJ:flores 03/23/21 TC:1 CPT: 22853 x3, 48038
--- NOTE | 2021-03-22 07:30 | COLBX_PTH ---
PATIENT: WILLAM GALLOWAY LOC: [facility] [place] U#:[id number] AGE/SX: 40/F ROOM: RE03/22/[address]: Dr. Radames De Jesus MD : 1980 BED: DIS: 03/22/2021 SPEC #: [id number] RECD: 03/22/21 08:25 STATUS: ESTEPHANIA REDavid #: [id number] JANE: 03/22/21 07:[address]: Radames De Jesus DEPT: SURGICAL PATHOLOGY RECD BY: Kaley Hannon ENTERED: 03/22/21 10:33 SP TYPE: COLON BX OTHR DR: Dr. Guillaume Jauregui DO Tissues: A - Sigmoid colon biopsy B - Sigmoid colon biopsy C - Rectum, NOS D - HEMORRHOIDS Procedures: Surgery Specimen Level III Surgery Specimen Level IV HEADER OPERATION: Colonoscopy (MAC) PRE-OP DIAGNOSIS: Rectal bleed, anal fissure, internal hemorrhoids TISSUE SUBMITTED: A ? Proximal sigmoid polyp snare, B ? Biopsy proximal sigmoid, C ? Rectal polyp snare MICROSCOPIC DIAGNOSIS A. Proximal sigmoid polyp, biopsy: Tubular adenoma. B. Proximal sigmoid, biopsy: Hyperplastic polyp. C. Rectal polyp, biopsy: Hyperplastic polyp. JANETH:flores 03/23/2021 MICROSCOPIC DESCRIPTION Slides are reviewed. GROSS DESCRIPTION A - Received in fixative is one container labeled with the patient's name and designated proximal sigmoid polyp. The specimen consists of a ramos-pink polyp measuring 0.6 x 0.6 x 0.4 cm. The specimen is totally submitted in one cassette. B - Received in fixative is one container labeled with the patient's name and designated biopsy of proximal sigmoid. The specimen consists of two irregular fragments of light ramos soft tissue that in aggregate measure 0.4 x 0.2 x 0.1 cm. The specimen is totally submitted in one cassette. C - Received in fixative is one container labeled with the patient's name and designated rectal polyp. The specimen consists of one irregular fragment of light ramos soft tissue that measures 0.2 x 0.2 x 0.1 cm. The specimen is totally submitted in one cassette. / JANETH:flores 03/23/2021 TC:1 CPT: 84810 x3
[2021-03-22] MEDS: Lubricating Jelly 60 GM Tube 30 GM TOPICAL (08:00)
--- NOTE | 2021-03-22 08:02 | OP.COLON_ITS ---
Patient Name: Chinyere Thomas Procedure Date: 03/22/2021 7:24 AM Date of : 1980 Age: 40 Procedure: Colonoscopy Indications: Rectal bleeding Providers: Radames De Jesus MD Medicines: See the Anesthesia note for documentation of the administered medications Patient Profile: Last Colonoscopy: none. The patient's first colonoscopy is today. Complications: No immediate complications. Procedure: Pre-Anesthesia Assessment: - Prior to the procedure, a History and Physical was performed, and patient medications and allergies were reviewed. The patient's tolerance of previous anesthesia was also reviewed. The risks and benefits of the procedure and the sedation options and risks were discussed with the patient. All questions were answered, and informed consent was obtained. Prior Anticoagulants: The patient has taken no previous anticoagulant or antiplatelet agents. ASA Grade Assessment: I - A normal, healthy patient. After reviewing the risks and benefits, the patient was deemed in satisfactory condition to undergo the procedure. After I obtained informed consent, the scope was passed under direct vision. Throughout the procedure, the patient's blood pressure, pulse, and oxygen saturations were monitored continuously. The pediatric colonoscope was introduced through the anus and advanced to the cecum, identified by appendiceal orifice and ileocecal valve. The colonoscopy was performed without difficulty. The patient tolerated the procedure well. The quality of the bowel preparation was excellent. The ileocecal valve and the appendiceal orifice were photographed. Scope In: 7:33:06 AM Scope Withdrawal Time 0 hours 13 minutes 43 seconds Scope Out: 7:51:33 AM Total Procedure Duration Time 0 hours 18 minutes 27 seconds Findings: The digital rectal exam findings include non-thrombosed internal hemorrhoids and internal hemorrhoids that prolapse with straining, but require manual replacement into the anal canal (Grade III). A 7 mm polyp was found in the proximal sigmoid colon. The polyp was semi-pedunculated. The polyp was removed with a hot snare. Resection and retrieval were complete. A 3 mm polyp was found in the proximal sigmoid colon. The polyp was sessile. The polyp was removed with a cold biopsy forceps. Resection and retrieval were complete. A 3 mm polyp was found in the rectum. The polyp was sessile. The polyp was removed with a hot snare. Resection and retrieval were complete. Impression: - Non-thrombosed internal hemorrhoids and internal hemorrhoids that prolapse with straining, but require manual replacement into the anal canal (Grade III) found on digital rectal exam. - One 7 mm polyp in the proximal sigmoid colon, removed with a hot snare. Resected and retrieved. - One 3 mm polyp in the proximal sigmoid colon, removed with a cold biopsy forceps. Resected and retrieved. - One 3 mm polyp in the rectum, removed with a hot snare. Resected and retrieved. Recommendation: - Repeat colonoscopy in 5 years for surveillance based on pathology results. - Return to my office in 3 weeks. - Continue present medications. Procedure Code(s): --- Professional --- 80062, Colonoscopy, flexible; with removal of tumor(s), polyp(s), or other lesion(s) by snare technique 30365, 59, Colonoscopy, flexible; with biopsy, single or multiple Diagnosis Code(s): --- Professional --- K64.2, Third degree hemorrhoids D12.5, Benign neoplasm of sigmoid colon K62.1, Rectal polyp K62.5, Hemorrhage of anus and rectum CPT copyright 2017 [employer]. All rights reserved. The codes documented in this report are preliminary and upon sorting supervisor review may be revised to meet current compliance requirements. Radames De Jesus MD 03/22/2021 8:01:46 AM This report has been signed electronically. Number of Addenda: 0 Note Initiated On: 03/22/2021 7:24 AM
--- NOTE | 2021-03-22 08:03 | OP.CCLET_ITS ---
03/22/2021 Guillaume Jauregui [address] [facility] [place] [address] Re : Colonoscopy procedure for Chinyere Thomas Dear Dr. Jauregui This procedure was performed on Monday, March 22, 2021. My impressions and recommendations are as follows: Impressions : - Non-thrombosed internal hemorrhoids and internal hemorrhoids that prolapse with straining, but require manual replacement into the anal canal (Grade III) found on digital rectal exam. - One 7 mm polyp in the proximal sigmoid colon, removed with a hot snare. Resected and retrieved. - One 3 mm polyp in the proximal sigmoid colon, removed with a cold biopsy forceps. Resected and retrieved. - One 3 mm polyp in the rectum, removed with a hot snare. Resected and retrieved. Recommendations : - Repeat colonoscopy in 5 years for surveillance based on pathology results. - Return to my office in 3 weeks. - Continue present medications. My findings are described in the full procedure note, which is enclosed. If I can be of further assistance, please feel free to contact me at Doctor phone number(s): Work: . Sincerely, Radames De Jesus MD 03/22/2021 8:01:46 AM This report has been signed electronically.
[2021-03-22] MEDS: Cefotetan 2 GM in 0.9% NS 100 ML IV (08:12)
[2021-03-22] MEDS: BUPIVACAINE LIPOSOME/PF 20 ML VIAL OPERA.SITE (08:12)
[2021-03-22] MEDS: Bupivacaine 0.25% 30 ML Vial (08:12)
[2021-03-22] MEDS: Dibucaine 30 GM Tube 1 APPLIC (08:46)
--- NOTE | 2021-03-22 08:51 | OP.PCM_ITS ---
Problems Associated Problem List Diagnoses (1) Rectal bleed: (2) Chronic posterior anal fissure: (3) Internal hemorrhoids with complication: Report of Operation Date of Procedure: 03/22/21 Pre-Operative Diagnosis: Rectal bleeding, internal hemorrhoids, posterior anal fissure Post-Operative Diagnosis: Colon polyps x3, posterior anal fissure, bleeding internal hemorrhoids Surgery/Procedure Performed:: Colonoscopy with polypectomy, posterior anal fissurectomy with internal hemorrhoidectomy Description of Surgical Findings:: Timeout and informed consent was obtained. 40-year-old female was taken to the operating placed in the left obscures position. She underwent monitored anesthesia care. A colonoscopy was performed. Please refer to the Provation dictation. 3 polyps identified and removed. Posterior anal fissure identified. Bleeding internal hemorrhoids noted. Subsequent to the colonoscopy was placed prone on the table with care for shoulder roll. Cefotetan 2 g were given intravenously. She remained on monitored anesthesia care. Buttock taping was performed after Skin-Prep applied.. Nares painted with Betadine. 0.5% Marcaine mixed with Exparel 30 cc and 20 cc was used for my local anesthetic. Local was instilled around the anus. Anal inspection revealed posterior anal fissure. Partially healed. There were exuberant internal hemorrhoids. I placed anal speculum placed a apical suture of 2-0 chromic and then excised the posterior anal fissure. We approximated the mucosa with a running locking 2-0 chromic. Hemorrhoidal tissue in the right anterior lateral side and left posterior side were treated with apical sutures with 2-0 chromic and then harmonic scalpel excision of the internal hemorrhoidal disease with approximation of the mucosa with a running 2- 0 chromic. I used a mucosal sparing technique to allow for better resolution. Sphincter mechanism was identified and carefully protected. That was well-tolerated. Vaseline gauze with dibucaine was inserted into the anus. Dry covered dressings. Sponge and instrument and needle counts were reported to certainly be correct. Blood loss minimal. Specimens posterior anal fissure and fragments of internal hemorrhoids. Blood loss minimal. Drains none. Radames De Jesus M.D., F.A.C.S. Surgeon: Radames De Jesus Type of Anesthesia: Local MAC Anesthesiologist: Woody Lawrence
--- NOTE | 2021-03-22 09:57 | SUR.PHASEII ---
Patient given Work Excuse to be able to return to work on 04/17/2021. Copy given to patient, original on chart. TOM De Jesus. / Xi Mays RN
== END 2021-03-22 10:07 | disposition home or self-care (01) ==
LOC: SDC 05:57 → AC 05:57
PROVIDERS: Anesthesiology; PCP Family Medicine; Referring Provider Family Medicine; Visit Provider Surgery
PROC: (CPT 45380; principal; 2021-03-22 07:15)
PROC: 0DJD8ZZ Inspection of Lower Intestinal Tract, Via Natural or Artificial Opening Endoscopic (ICD-10-PCS; CPT 45378; principal; 2021-03-22 07:25)
DX: D12.5 Benign neoplasm of sigmoid colon (principal); K63.5 Polyp of colon; K62.1 Rectal polyp; K64.2 Third degree hemorrhoids; K60.2 Anal fissure, unspecified; Z80.0 Family history of malignant neoplasm of digestive organs
CPT/HCPCS: 45380; 46200; 46999; 84703; 88304; 88305; J7120; J2405